=== PATIENT | female | born 1980 | race Caucasian/White ===

== ENCOUNTER 2016-10-02 07:39 | Emergency (ER) | payer SELFPAY ==
[~2016-10-02] VITALS: Ht 162.6 cm; Wt 70.0 kg
[~2016-10-02 07:39] MED LIST: METR500T10 PO
[2016-10-02 07:42] VITALS: BP 127/67; PULSE 76; RESP 15; TEMP 98.2; O2SAT 99
[2016-10-02] MEDS ORDERED: AZIT250T3 PO (08:26)
[2016-10-02] MEDS ORDERED: ACYC-101 PO (08:26)
[2016-10-02] MEDS ORDERED: IPRA0.06 EACH NARE (08:26)
--- NOTE | 2016-10-02 08:26 | PD ---
HPI Chief Complaint: Cold / Flu Symptoms Time Seen by Provider: 08:20 Travel History International Travel<30 days: No Contact w/Intl Traveler<30days: No Traveled to known affect area: No History of Present Illness HPI Patient is a 36-year-old female who presents emergency for evaluation of a cough. Patient also presents with a rash to her right shoulder. Patient states the rash erupted yesterday, she states it was itchy and burning. She states she had a cold approximately one week ago and her symptoms have cleared but she continues to have nasal congestion and a cough. She denies any fever, chills, nausea, vomiting, chest pain, shortness of breath, abdominal pain. PFSH Past Medical History Asthma: Yes Autoimmune Disease: No Blood Disorders: No Anxiety: No Depression: Yes Cancer: No Cardiovascular Problems: No Cerebrovascular Accident: No Diminished Hearing: No Endocrine: No Genitourinary: No Headaches: No Immune Disorder: No Musculoskeletal: No Neurologic: Yes (MENINGITIS 3 YEARS AGO) Psychiatric: Yes (DRUG ABUSE) Reproductive: No Respiratory: No Migraines: No Seizures: No ?: Not : 2 Para: 2 Miscarriage: 0 Tubal Ligation: Yes Past Surgical History Abdominal Surgery: No Cardiac Surgery: No Ear Surgery: No Endocrine Surgery: No Eye Surgery: No Genitourinary Surgery: No Gynecologic Surgery: Yes (TUBAL LIGATION) Oral Surgery: No Thoracic Surgery: No Other Surgery: Yes Social History Alcohol Use: No Tobacco Use: No Substance Use: No Allergies-Medications (Allergen,Severity, Reaction): Coded Allergies: Nubain (Verified Allergy, Severe, HOT FLASH, 03/30/16) Reglan (Verified Allergy, Severe, HOT FLASH, 03/30/16) Uncoded Allergies: ALL NARCOTICS (Allergy, Severe, ADDICTION, 05/28/13) Reported Meds & Prescriptions Reported Meds & Active Scripts Active Metronidazole 500 Mg Tab 500 Mg PO TID Review of Systems Except as stated in HPI: all other systems reviewed are Neg HENT: Positive: Congestion Respiratory: Positive: Cough Skin: Positive Rash Physical Exam Narrative GENERAL: Well-nourished, well-developed patient. SKIN: Warm and dry. 6 cm linear vesicular rash noted to right supraclavicular area. HEAD: Normocephalic. EYES: No scleral icterus. No injection or drainage. NECK: Supple, trachea midline. No JVD or lymphadenopathy. CARDIOVASCULAR: Regular rate and rhythm without murmurs, gallops, or rubs. RESPIRATORY: Breath sounds equal bilaterally. No accessory muscle use. No wheezing, rhonchi, or rales noted. No increased work of breathing noted. GASTROINTESTINAL: Abdomen soft, non-tender, nondistended. MUSCULOSKELETAL: No cyanosis, or edema. BACK: Nontender without obvious deformity. No CVA tenderness. Data Data Last Documented VS Vital Signs Date Time Temp Pulse Resp B/P Pulse Ox O2 Delivery O2 Flow Rate FiO2 10/02/16 07:42 98.2 76 15 127/67 99 [facility] Medical Decision Making Medical Screen Exam Complete: Yes Emergency Medical Condition: Yes Interpretation(s) Vital Signs Date Time Temp Pulse Resp B/P Pulse Ox O2 Delivery O2 Flow Rate FiO2 10/02/16 07:42 98.2 76 15 127/67 99 Differential Diagnosis Shingles versus dermatitis versus URI versus postinfectious cough versus rhinitis versus bronchitis versus other Narrative Course Patient is a 36-year-old female who presented to the emergency department for evaluation of a cough as well as a rash. Physical examination revealed a vesicular linear rash to the right supraclavicular region. Patient's lung sounds are clear, there is a cobblestone appearance to the posterior pharynx consistent with postnasal drip that is likely causing her to cough. Patient has a history of asthma but denies any wheezing, shortness of breath. Patient was encouraged to obtain [id number] Sudafed or similar agent to help dry nasal passages. She'll be provided with a prescription for acyclovir for the rash. She is encouraged to maintain thorough handwashing techniques. She was advised that shingles would clear on their own likely in 7-10 days. She verbalized understanding of these instructions. Patient is stable for discharge. Diagnosis Primary Impression: Herpes zoster Qualified Code: B02.9 - Herpes zoster without complication Additional Impression: Upper respiratory infection Qualified Code: J06.9 - Viral upper respiratory tract infection Referrals: Primary Care Physician Patient Instructions: General Instructions, Shingles (ED), Upper Respiratory Infection (ED) Additional Instructions: Follow-up with a primary doctor Take medications as directed Maintain strict hand washing procedure Obtain [id number] Sudafed or similar agent to help dry up nasal passages Return to emergency department for any new or worsening symptoms Med/Other Pt SpecificInfo: Prescription(s) given Scripts Azithromycin 250 Mg [id number] Mg PO DIRECTED #6 TAB Ref 0 Take 2 tabs (500 mg) on day 1 then 1 tab daily x 4 days. Prov:Yanni Barfield 10/02/16 Ipratropium Nasal 0.06% Spray1 [place] EACH NARE QID #1 BOTTLE Ref 0 Prov:Yanni Barfield 10/02/16 Acyclovir (Zovirax)800 Mg [id number] Mg PO 5 TIMES A DAY 7 Days Ref 0 Prov:Yanni Barfield 10/02/16 Disposition: 01 DISCHARGE HOME Condition: Stable Yanni Barfield Oct 02, 2016 08:26
== END 2016-10-02 09:03 | disposition home or self-care (01) ==
LOC: NEPB 07:39
DX: B02.9 Zoster without complications (principal); J06.9 Acute upper respiratory infection, unspecified
CPT/HCPCS: 99283